=== PATIENT | male | born 1950 | race Caucasian/White ===

== ENCOUNTER 2022-07-02 00:44 | Day surgery (SDC) | payer MEDICARE, SELFPAY ==
[2022-06-27 12:18] VITALS: BMI 20.3
--- NOTE | 2022-06-27 12:36 | PC.NURSE ---
PRE-OP INSTRUCTIONS, PLEASE READ CAREFULLY Report to the Outpatient Waiting Room, entrance under the green pavilion located off [facility], at time _0800_ on date _07/02/22_. Planned Procedure Time: _1000_. Time changes happen often and if your time is changed the preop area will call you the afternoon before. - You and your visitor will be asked to self-screen and do not enter if you have any COVID symptoms. - Only one visitor is requested with a max of two and NO children visitors are allowed at this time. - The patient visitor may be requested to leave or wait in car when not with patient due to distancing restrictions. - A mask is optional within the hospital at this time. Patients may have clear liquids (water, carbonated beverages, clear teas, apple juice) until 3 hours prior to surgery (0700 AM) with a maximum of 20 ounces. - No food from midnight until time of surgery Take the following medications with a SIP of water the morning of surgery: _FLUOXETINE_ DO NOT STOP ANY OF YOUR OTHER PRESCRIPTION MEDICATIONS PRIOR TO SURGERY ?EXCEPT THE FOLLOWING Medications to discontinue per physician NONE , Date to take last dose Please no make-up, nail hungarian, hairspray, perfume, deodorant, or body powder the day of surgery. No jewelry (including any body piercings) or valuables the day of surgery, leave them at home. Please take a shower or bath the night before, or the morning of, surgery with an antibacterial soap. Wear comfortable, loose fitting clothing. - Jewelry must be removed prior to entering the operating room. Rings and piercings that are not removed may be cut off. - The hospital will not accept responsibility for valuables. - Please leave all valuables, including medications, at home the day of surgery. If you are going home after surgery, a licensed mobile lounge driver must drive you home. - NO public transportation without another adult if you receive anesthesia. - We recommend that an adult stay with you for 24 hours following discharge. - We also recommend that you do not drive, make important decision, drink alcoholic beverages, or take any drugs that were not prescribed by your health care provider for at least 24 hours after your discharge time. Follow any additional instructions given to you from your surgeon. If you or anyone in your household have experienced Covid symptoms in the past week, please notify your surgeon or the nurse liaison at the phone number below for possible testing. Telephone instructions given to _PATIENT_and asked if any additional questions and then verbalized understanding. Patient advised to call surgeon office or pre surgery nurse liaison [phone] if any additional questions.
[2022-07-02] VITALS (18 sets, daily range): BP systolic 106–141; BP diastolic 62–81; PULSE 61–86; RESP 12–20; TEMP 36.6–37.1; O2SAT 92–100
--- NOTE | ~2022-07-02 | XR_ITS ---
EXAMINATION: XR retrograde pyelogram BI DATE: 07/02/2022 10:38 INDICATION: Hematuria. Transurethral bladder tumor resection. Bilateral retrograde pyelograms TECHNIQUE: 8 fluoroscopic images of the abdomen and pelvis were obtained during procedure performed anai Jenkins. Radiologist was not present for the imaging or procedure. The amount of fluoroscopy t tyler used during this procedure was 2.3 minutes. COMPARISON: None. FINDINGS: A fluoroscopic mortgage manager images are unremarkable. Bilateral retrograde pyelograms demonstrate s mall mobile lucent filling defects along both ureters, and each location corresponding in diameter to the diameter of the ureter with no evident hydroureteronephrosis or dysgenesis gas bubbles rather th an renal stones. IMPRESSION: 1. A few small mobile lucent filling defects in the bilateral ureters most likely representing gas bu bbles but low density ureteral stones cannot be excluded. Correlate with procedure note. Reviewed, dictated and finalized at location A. CAL PSYCHOTHERAPIST IMPRESSION: 1. A few small mobile lucent filling defects in the bilateral ureters most like ly representing gas bubbles but low density ureteral stones cannot be excluded. Correlate with procedure note.
--- NOTE | 2022-07-02 06:11 | ECG_ITS ---
Measurements Intervals Black Rate: 69 P: 14 NV: 187 QRS: -17 QRSD: 96 T: 7 QT: 418 QTc: 449 Interpretive Statements SINUS RHYTHM INCOMPLETE RIGHT BUNDLE BRANCH BLOCK BORDERLINE T WAVE ABNORMALITY- INFERIOR LEADS BORDERLINE ECG NO PREVIOUS ECG AVAILABLE FOR COMPARISON Electronically Signed On 07-02-2022 7:44:11 [employer] by Anthony Resendiz D.O.
[2022-07-02] MEDS: LACTATED RINGERS 1,000 ML 30 ML IV CONT (07:15)
[2022-07-02 07:42] LABS: Basophils Percent Auto 0.4 % (0.2-1.2); Eosinophils Absolute Auto 0.1 K/mm3 (0-0.3); Eosinophils Percent Auto 1.8 % (0-4.4); Hematocrit 39.7 % (42.0-52.0); Hemoglobin 13.3 g/dL (14.0-18.0); Immature Granulocyte Absolute 0.01 K/mm3 (0.00-0.031); Immature Granulocyte Percent A 0.2 % (0-0.5); Lymphocytes Absolute Auto 1.19 K/mm3 (0.9-3.2); Lymphocytes Percent Auto 26.4 % (18.3-44.2); Mean Corpuscular HGB Conc 33.5 g/dl (32-36); Mean Corpuscular Hemoglobin 29.6 pg (26-34); Mean Corpuscular Volume 88.4 fl (80-100); Mean Platelet Volume 10.4 fl (7.4-10.4); Monocytes Absolute Auto 0.5 K/mm3 (0.1-0.6); Monocytes Percent Auto 10.2 % (2.6-8.5); Neutrophils Absolute Auto 2.8 K/mm3 (1.3-6.7); Platelet Count Result 192 k/mm3 (150-375); Red Blood Count 4.49 M/mm3 (4.6-6.20); Red Cell Distribution Width 12.8 % (11.5-14.5); White Blood Count 4.5 K/mm3 (4.5-10.0)
[2022-07-02 07:53] LABS: Anion Gap 4 mmol/L (8-16); Blood Urea Nitrogen 19 mg/dL (9-20); Calcium 8.5 mg/dL (8.4-10.2); Carbon Dioxide 30 mmol/L (22-30); Chloride 106 mmol/L (98-107); Estimated CRCL calculation 59 ml/min; Estimated Glomerular Filt Rate > 60; Glucose 99 mg/dL (65-110); Potassium 3.7 mmol/L (3.4-5.0); Sodium 140 mmol/L (137-145)
[2022-07-02 07:56] LABS: INR 1.1; Prothrombin Time 13.3 Seconds (11.1-14.7)
[2022-07-02 07:57] LABS: Partial Thromboplastin Time 27.9 SECONDS (22.3-36.8)
--- NOTE | 2022-07-02 07:57 | WPDHPUPDATE1 ---
History and Physical Update Update Date/Time: 07/02/22 07:57 History and Physical has been reviewed, including an updated exam of the patient. There are NO changes in the patient's condition. Risks, benefits, and alternatives have been discussed and questions answered. Patient agrees to proceed with procedure.
--- NOTE | 2022-07-02 08:23 | WPDANESEPPF ---
Anes - Initial Pre Proc Eval Procedure: Operation Date: 07/02/22 10:00 Proposed Procedures p Trans Urethral Resection Bladder Tumor, Possible Bilateral Retrograde Pyelogram - Ran Jenkins MD Date/Time: 07/02/22 08:23 Surgeon: Ran Jenkins MD Pre Op Diagnosis: gross hematuria Patient Data Age: 71 Gender: M Height: 1.83 m Weight: 67.5 kg Last Vital Signs Temp 37.0 C 07/02/22 08:19 Pulse 66 07/02/22 08:19 Resp 14 07/02/22 08:19 BP 141/81 H 07/02/22 08:19 Pulse Ox 99 07/02/22 08:19 O2 Del Method Room Air 07/02/22 08:19 Allergies Allergy/AdvReac Type Severity Reaction Status Date / Time No Known Allergies Allergy Verified 07/02/22 08:23 Home Medications Medication Instructions Recorded Confirmed Type atorvastatin 20 mg tablet 20 mg PO QAM 06/27/22 06/27/22 History fluoxetine 10 mg capsule 10 mg PO QAM 06/27/22 06/27/22 History terazosin 10 mg capsule 10 mg PO HS 06/27/22 06/27/22 History trazodone 100 mg tablet 200 mg PO HS PRN Sleep 06/27/22 06/27/22 History Laboratory Tests 07/02/22 07/02/22 07/02/22 07:25 07:25 07:25 WBC 4.5 K/mm3 K/mm3 (4.5-10.0) RBC 4.49 M/mm3 L M/mm3 (4.6-6.20) Hgb 13.3 g/dL L g/dL (14.0-18.0) Hct 39.7 % L % (42.0-52.0) MCV 88.4 fl fl (80-100) MCH 29.6 pg pg (26-34) MCHC 33.5 g/dl g/dl (32-36) RDW 12.8 % % (11.5-14.5) Plt Count 192 k/mm3 k/mm3 (150-375) MPV 10.4 fl fl (7.4-10.4) Immature Gran % (Auto) 0.2 % % (0-0.5) Neut % (Auto) 61.0 % % (45.5-73.1) Lymph % (Auto) 26.4 % % (18.3-44.2) Lassen % (Auto) 10.2 % H % (2.6-8.5) Eos % (Auto) 1.8 % % (0-4.4) Baso % (Auto) 0.4 % % (0.2-1.2) Lymph # (Auto) 1.19 K/mm3 K/mm3 (0.9-3.2) [place]assen # (Auto) 0.5 K/mm3 K/mm3 (0.1-0.6) Eos # (Auto) 0.1 K/mm3 K/mm3 (0-0.3) Baso # (Auto) 0.0 K/mm3 K/mm3 (0.0-0.1) Abs Immat Gran (auto) 0.01 K/mm3 K/mm3 (0.00-0.031) Absolute Neuts (auto) 2.8 K/mm3 K/mm3 (1.3-6.7) Absolute Nucleated RBC 0.0 K/mm3 K/mm3 (0.0-0.012) Nucleated RBC % 0.0 % % (0.0-0.2) PT 13.3 Seconds Seconds (11.1-14.7) INR 1.1 APTT 27.9 SECONDS SECONDS (22.3-36.8) Sodium 140 mmol/L mmol/L (137-145) Potassium 3.7 mmol/L mmol/L (3.4-5.0) Chloride 106 mmol/L mmol/L (98-107) Carbon Dioxide 30 mmol/L mmol/L (22-30) Anion Gap 4 mmol/L L mmol/L (8-16) BUN 19 mg/dL mg/dL (9-20) Creatinine 1.00 mg/dL mg/dL (0.7-1.3) Estim Creat Clear Calc 59 ml/min ml/min Estimated GFR > 60 (59 - ) Glucose 99 mg/dL mg/dL (65-110) Calcium 8.5 mg/dL mg/dL (8.4-10.2) Patient hx anesthesia problems: none Family hx anesthesia problems: none Results Review: All pre-operative results and documents have been reviewed as part of the pre-operative evaluation. FOR[facility]LY [facility] Past Medical History Medical History (Updated 07/02/22 @ 08:23 by Kodi Tena MD) Hyperlipidemia HORACE (obstructive sleep apnea) Social History Social History Smoking packs per day: 0.5 Smoking cigarettes per day: 10.0 Years smoked: 10 Smoking pack-years: 5.00 Smoking status: Former smoker Tobacco type: cigarettes Second hand tobacco smoke exposure: No Smoking end date: 06/02/82 Substance use: never Substance use type: does not use Living arrangements: with family Additional living arrangements comments: LIVES WITH ZACK PARISI Spiritual care concerns: No Anes - Eval Final PreProcedure Day of Procedure 07/02/22 08:23 Patient weight: normal Heart: regular rate and rhythm Lungs: clear to auscultation Airway: Mallamp
[2022-07-02] MEDS: ceFAZolin 2 GM/D5W 50 ML 2 GM/50 ML BAG IVPB (09:20)
[2022-07-02] MEDS: LIDOCAINE HCL 2% GEL UROJET 10 ML PKG MUCOUS MEM (09:38)
--- NOTE | 2022-07-02 10:29 | W.PM.PROC2 ---
Procedure Note - Detailed Date of Procedure 07/02/22 Pre-op Diagnosis Bladder tumor large greater than 5 cm Post-op Diagnosis Same Procedure Performed Transurethral section of bladder tumor greater than 5 cm, cysto with bilateral retrograde pyelograms Surgeon Ran Jenkins MD Anesthesia General Description of Procedure Patient is taken to the operative suite correctly identified. Once anesthesia was obtained was placed in dorsal lithotomy position and prepped and draped usual sterile fashion. Nineteen Australian scope was inserted the bladder. He has some lateral lobe hypertrophy and a slight median lobe. Upon entering the bladder has a large tumor along the floor posteriorly. He has a heavily trabeculated bladder. Both ureteral orifices were visualized. [place] was inserted in a pyelogram was performed. There was no filling defects noted. We then dilated the meatus up to 28 Australian. Twenty-four Australian resectoscope sheath was inserted into the bladder. The bladder tumor was resected. Again he has a heavily trabeculated bladder with some small diverticuli. We resected the tumor down to the base. We sent some of the base off. There is some concern regarding how deep this is going. We then fulgurated the base. There appeared to be fairly good hemostasis. Given the large size of the tumor greater than 5 cm we placed an [address] connected to continuous bladder irrigation. He will be admitted for CBI overnight. Will plan on leaving the [place] catheter for 4-5 days as he is somewhat thin walled bladder. Patient may need a resection at some point pending the pathology review. Please send a copy of this op note to my office. Estimated Blood Loss 20 Drains Yes Packing No Pathology Yes Complications No immediate complications Condition Stable Disposition PACU
[2022-07-02] MEDS: fentaNYL CITRATE INJ (*CRX) 100 MCG/2 ML VIAL 25 MCG IV PUSH ×5 (11:19→12:33)
[2022-07-02] MEDS: oxyBUTYnin CHLORIDE 5 MG TABLET PO (11:44)
--- NOTE | 2022-07-02 13:48 | ADMGEN ---
This patient, Yonny Velásquez, was admitted to Medical Room 255-01. Patient/family oriented to hospital policies and general routines including ID bracelet, bed and alarms, visiting hours, pain management, procedures, bathroom and other care routines, personal items, smoking policy, room service/diet, and visiting hours. Information on how to activate the Rapid Response Team has been discussed. Patient/Family are encouraged to report perceived risks to care and to ask questions if they do not understand what they are told or what they should do.
[2022-07-02] MEDS: DOCUSATE SODIUM 100 MG CAPSULE PO (17:18)
[2022-07-02] MEDS: TERAZOSIN HCL 5 MG CAPSULE 10 MG PO (21:16)
[2022-07-02] MEDS: traZODone HCL 50 MG TABLET 200 MG PO (21:17)
[2022-07-03 01:20] VITALS: BP 116/70; PULSE 76; RESP 16; TEMP 36.6; O2SAT 98
[2022-07-03 06:48] VITALS: BP 109/68; PULSE 72; RESP 14; TEMP 36.8; O2SAT 98
[2022-07-03 10:52] VITALS: BP 128/73; PULSE 69; RESP 16; TEMP 36.8; O2SAT 99
[2022-07-03] MEDS: ATORVASTATIN 20 MG TABLET PO (11:17)
[2022-07-03] MEDS: FLUoxetine HCL 10 MG CAPSULE PO (11:17)
[2022-07-03] MEDS: CEPHALEXIN 500 MG CAPSULE PO (11:17)
[2022-07-03] MEDS: DOCUSATE SODIUM 100 MG CAPSULE PO (11:17)
--- NOTE | 2022-07-03 15:06 | WPDUROPN2 ---
Progress Note: A&P Assessment and Plan (1) Bladder mass: Code(s): N32.89 - Other specified disorders of bladder Status: Acute Assessment and Plan: Ok to discharge home with vcaa catheter to f/u on Friday. Subjective Subjective Date/Time Seen: 07/03/22 15:06 Transurethral section of bladder tumor greater than 5 cm, cysto with bilateral retrograde pyelograms Patient doing very well today, urine clear off CBI. He is tolerating activity and diet well. Post Op day: 1 Review of Systems Respiratory: Respiratory: Reports no additional respiratory complaints Gastrointestinal: Gastrointestinal: Denies abdominal pain Genitourinary: Genitourinary: Denies hematuria and Denies flank pain Exam Const: General: cooperative Resp: Effort & Inspection: normal respiratory effort Cardio: Rate: regular rate GI: GI Palp: Yes Soft to palpation and No Tenderness to palpation present (GI) : General: Yes no CVA tenderness Urinary Catheter: Urinary Catheter: patent and draining and urine clear Extrem: Right lower extremity: no edema Left lower extremity: no edema Objective Data Vital Signs Vital Signs: Vital Signs - 24 hr 07/02/22 18:35 07/02/22 22:29 07/03/22 01:20 Temperature 97.8 F 98.3 F 97.8 F Pulse Rate 78 61 76 Respiratory Rate 16 14 16 Blood Pressure 106/65 106/62 116/70 Pulse Oximetry 100 96 98 Oxygen Delivery 07/03/22 06:48 07/03/22 08:00 07/03/22 10:52 Temperature 98.3 F 98.3 F Pulse Rate 72 69 Respiratory Rate 14 16 Blood Pressure 109/68 128/73 Pulse Oximetry 98 99 Oxygen Delivery Room Air Intake/Output Intake/Output: Intake & Output 06/30/22 07/01/22 07/02/22 07/03/22 23:59 23:59 23:59 23:59 Intake Total 6640 710 Output Total 6250 1850 Balance 390 -1140 Meds/Results Radiology Results: ITS Impressions Retrograde Pyelogram 07/02/22 11:38 IMPRESSION: 1. A few small mobile lucent filling defects in the bilateral ureters most likely representing gas bubbles but low density ureteral stones cannot be excluded. Correlate with procedure note.
== END 2022-07-03 13:41 | disposition home or self-care (01) ==
LOC: ANHSURGERY 06:52 → ANH2MED 13:30
PROVIDERS: PCP Family Medicine; Visit Provider Urology
PROC: 0TBB8ZZ Excision of Bladder, Via Natural or Artificial Opening Endoscopic (ICD-10-PCS; CPT 52240; principal; 2022-07-02 10:00)
DX: C67.0 Malignant neoplasm of trigone of bladder (principal); N32.3 Diverticulum of bladder; R31.9 Hematuria, unspecified; E78.5 Hyperlipidemia, unspecified; G47.33 Obstructive sleep apnea (adult) (pediatric); Z87.891 Personal history of nicotine dependence
CPT/HCPCS: 52240; 36415; 74420; 80048; 85025; 85610; 85730; 88305; 93005; A9270; C1758; C1769; J0690; J1100; J2405; J2704; J3010; J7120